=== PATIENT | female | born 1970 | race Caucasian/White ===

== ENCOUNTER 2017-08-17 12:50 | Day surgery (SDC) | payer BC ==
[2017-08-16 17:02] VITALS: BMI 49.6
[2017-08-17] MEDS ORDERED: PHENYLEPHRINE-NS 100 MCG/ML 10 ML SYRINGE ONE (15:07)
[2017-08-17] MEDS ORDERED: Propofol 200 MG/20 ML VIAL ONE (15:07)
[2017-08-17] MEDS ORDERED: Lidocaine 1% PF 5 ML VIAL ONE (15:07)
--- NOTE | 2017-08-17 23:37 | OP ---
PREOPERATIVE DIAGNOSES: 1. Reflux and abdominal pain. 2. Ms. Castro had chronic on and off abdominal pains and appendectomy, cholecystectomy, hysterecto my. Personally main complaints of diarrhea after fatty foods. Celiac testing, CBC, TSH, and comp m et profile were normal. PROCEDURES: EGD and colonoscopy with biopsy. POSTOPERATIVE DIAGNOSES: 1. Normal esophagogastroduodenoscopy. 2. Colonoscopy normal. Random biopsies taken for microscopic colitis. ANESTHESIA: TIVA. PROCEDURE IN DETAIL: After the patient was informed of the risks, benefits, and possible complicati ons of endoscopy including perforation, bleeding, reactions to medication and aspiration, informed c onsent was obtained. The patient brought to endoscopy suite where she was sedated in a gradual fash ion. Once she was comfortable, a bite block was placed in incisural orifice. The endoscope was adv anced through the esophagus, stomach and second and third portion of the duodenum and slowly removed . There was a good visualization of the mucosa. The stomach, esophagus, and duodenum were normal. There was no evidence of celiac disease. There was no scalloping of the duodenal folds. Previous celiac serologies were negative; therefore, biopsies were not taken. The scope was removed. The patient was turned in the room. A rectal examination was performed. The endoscope was advanced through the anal canal through the colon to the cecum which was identified by ileocecal valve and a ppendiceal orifice. The scope was then slowly removed with good visualization of the mucosa. The t erminal ileum was entered and found to be normal. No polyps or masses were seen. There were 2 biop sies randomly were taken to rule out microscopic colitis. Retroflexed views in the rectum were norm al and the scope was removed. RECOMMENDATIONS: Trial of Colestid for post-cholecystectomy diarrhea. Follow up in the office in 2 -[address] weeks[address] also place on diet.
== END 2017-08-17 16:20 | disposition home or self-care (01) ==
LOC: SDC 12:50
PROVIDERS: ATTEND Internal Medicine Gastroenterology
PROC: 0DJ08ZZ Inspection of Upper Intestinal Tract, Via Natural or Artificial Opening Endoscopic (ICD-10-PCS; principal; 2017-08-17)
PROC: 0DBE8ZX Excision of Large Intestine, Via Natural or Artificial Opening Endoscopic, Diagnostic (ICD-10-PCS; principal; 2017-08-17)
DX: K63.5 Polyp of colon (principal); K21.9 Gastro-esophageal reflux disease without esophagitis; Z88.1 Allergy status to other antibiotic agents; Z91.018 Allergy to other foods; Z79.899 Other long term (current) drug therapy; Z90.49 Acquired absence of other specified parts of digestive tract; Z90.710 Acquired absence of both cervix and uterus; Z98.891 History of uterine scar from previous surgery; Z87.891 Personal history of nicotine dependence
CPT/HCPCS: 88305; J2001; J2704

== ENCOUNTER 2018-06-17 08:44 | Outpatient (CLI) | payer BC | END 2018-06-17 08:45 | disposition home or self-care (01) | LOC: BICMAMMO 08:44 | PROVIDERS: ATTEND Family Medicine | DX: R92.2 Inconclusive mammogram (principal) | CPT/HCPCS: G0279 ==

== ENCOUNTER 2024-08-18 08:45 | Outpatient (CLI) | payer OTHER | END 2024-08-18 08:46 | disposition home or self-care (01) | LOC: BICMAMMO 08:45 | PROVIDERS: ATTEND Family Medicine | DX: R92.8 Other abnormal and inconclusive findings on diagnostic imaging of breast (principal); M54.50 Low back pain, unspecified; M47.816 Spondylosis without myelopathy or radiculopathy, lumbar region; M47.817 Spondylosis without myelopathy or radiculopathy, lumbosacral region | CPT/HCPCS: 72100; 77066; G0279 ==

== ENCOUNTER 2025-10-24 10:39 | Outpatient (CLI) | payer OTHER | END 2025-10-24 10:40 | disposition home or self-care (01) | LOC: SCSMRI 10:39 | PROVIDERS: ATTEND Orthopaedic Surgery | DX: M23.92 Unspecified internal derangement of left knee (principal); S83.412A Sprain of medial collateral ligament of left knee, initial encounter; R60.0 Localized edema; M25.462 Effusion, left knee; S80.02XA Contusion of left knee, initial encounter ==